=== PATIENT | male | born 1950 | race Caucasian/White ===

== ENCOUNTER 2016-12-13 10:59 | Emergency (ER) | payer OTHER, MEDICARE ==
[~2016-12-13] VITALS: Ht 182.9 cm; Wt 86.6 kg
[~2016-12-13 10:59] MED LIST: ASPIRIN EC325 MG PO; ATENOLOL50 MG PO; DIAZEPAM5 MG PO; FUROSEMIDE80 MG PO; IMIPRAMINE HCL10 MG PO; K-DUR20 MEQ PO; LEVAQUIN500 M1 PO; LEVAQUIN500 MG PO; LEVAQUIN750 MG PO; LISINOPRIL20 MG PO; PERPHENAZINE2 MG PO; [UNRECOGNIZED DRUG - OTHER] PO
[2016-12-13 11:11] VITALS: BP 126/79
--- NOTE | 2016-12-13 11:39 | ED INFLUENZA/URI COMPLAINT ---
History of Present Illness General Chief Complaint: Upper Respiratory Sx/Fever Stated Complaint: PT STATES "I HAVE ACUTE SINUSITIS" Source: patient Exam Limitations: no limitations Vital Signs & Intake/Output Vital Signs & Intake/Output Vital Signs Date Time Temp Pulse Resp B/P B/P Pulse O2 O2 Flow FiO2 Mean Ox Delivery Rate 12/13 1111 97.5 81 20 126/79 96 Room Air Allergies Coded Allergies: Macrolide Antibiotics (UNKNOWN 07/24/15) Penicillins (UNKNOWN 07/24/15) Sulfa (Sulfonamide Antibiotics) (UNKNOWN 07/24/15) acetaminophen (From PERCOCET) (UNKNOWN 07/24/15) oxycodone (From PERCOCET) (UNKNOWN 07/24/15) propoxyphene (UNKNOWN 07/24/15) Reconcile Medications Aspirin E.c. (Ecotrin) 325 MG TAB 1 TAB PO EOD HEART HEALTH (Reported) Atenolol 50 MG TABLET 2 TAB PO BID BP (Reported) Ciprofloxacin HCl/Dexameth (Ciprodex Otic Suspension) 0.3 %-0.1 % DROPS.SUSP 4 GTT OT BID OTITIS EXTERNA Diazepam 5 MG TABLET 1 TAB PO BID ANXIETY (Reported) Furosemide 80 MG TAB 1 TAB PO BID FLUID (Reported) IMIPRAMINE HCL (Imipramine HCl) 10 MG TAB 1 TAB PO AT BEDTIME MENTAL HEALTH ( Reported) Imipramine Hydrochloride 25 MG TAB 1 TAB PO 4 TIMES/DAY DEPRESSION (Reported) Levofloxacin (Levaquin) 500 MG TABLET 1 TAB PO DAILY sinusitis Levofloxacin (Levaquin) 750 MG TABLET 1 TAB PO DAILY SINUSITIS Lisinopril 20 MG TABLET 1 TAB PO BID BP (Reported) Perphenazine 2 MG TABLET 1 TAB PO TID ANXIETY FROM IMIPRAMINE (Reported) Potassium Chloride (K-Dur) [address] 1 TAB PO DAILY SUPPLEMENT (Reported) Triage Note: PT TO ED C/O "SINUSES AND EARS" X 1 WEEK. AFEBRILE. PT WAS TOLD YEARS AGO BY DR CLEARY TO COME TO ED AT THE FIRST SIGN OF A SINUS INFECTION DUE TO H/O CHF 20 YEARS AGO. PT STATES HE IS "ALLERGIC TO EVERYTHING" AND CAN ONLY TAKE LEVAQUIN. Triage Nurses Notes Reviewed? yes Onset: Gradual Duration: constant Timing: recent history Severity: severe Severity Numbers: 7 Prior Episodes/Possible Cause: chronic episodes HPI: Patient is a 66-year-old male with past medical history chronic sinusitis and CHF who presents emergency room with concerns of 5 day history gradual onset of nasal congestion sinus pressure and pain and right-sided ear pain. Patient states symptoms are very similar to previous episodes sinusitis. Denies any shortness of breath chest pain cough leg swelling chest pain and arm pain jaw pain sore throat difficulty swallowing headache neck pain neck stiffness (INDU HARPER) Past History Travel History Traveled to [place] past 21 day No Medical History Any Pertinent Medical History? 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 No (INDU HARPER) Review of Systems Review of Systems Constitutional: Reports: no symptoms. EENTM: Reports: see HPI, ear pain, nasal congestion. Respiratory: Reports: no symptoms. Cardiovascular: Reports: no symptoms. GI: Reports: no symptoms. Genitourinary: Reports: no symptoms. Musculoskeletal: Reports: no symptoms. Skin: Reports: no symptoms. Neurological/Psychological: Reports: no symptoms. Hematologic/Endocrine: Reports: no symptoms. Immunologic/Allergic: Reports: no symptoms. All Other Systems: Reviewed and Negative (INDU HARPER) Physical Exam Physical Exam General Appearance: no apparent distress, alert, comfortable Ears, Nose, Throat: moist mucous membrane, hearing grossly normal, pharynx normal, nasal congestion, nasal drainage, RIGHT EXTERNAL AUDITORY CANAL ERYTHEMA AND SWELLING TM BILATERAL NORMAL Comments: Well-developed well-nourished person in no acute distress HEENT: extraocular motion intact, no nystagmus. Pupils equally round and reactive to light and accommodation. Nose is atraumatic. . Pharynx normal. No swelling or edema. Left frontal sinus point tenderness, left maxillary sinus point tenderness Neck: Supple, no lymphadenopathy, normal range of motion without pain or tenderness Back: Nontender, no CVA tenderness. Cardiovascular: Regular rate and rhythms no murmurs rubs or gallops, normal JVP Respiratory: Chest nontender. No respiratory distress.breath sounds clear to auscultation bilaterally Abdomen: Soft, nontender nondistended, no appreciable organomegaly. Normal bowel sounds. No ascites Extremity: No edema, no calf tenderness to palpation, normal and equal pulses. Neuro: Alert oriented x3, motor sensory normal, Skin: No appreciable rash on exposed skin, skin is warm and dry. Psych: Mood and affect is normal, memory and judgment is normal. Core Measures Severe Sepsis Present: No Septic Shock Present: No (INDU HARPER) Progress Differential Diagnosis: influenza, meningitis, neutropenia, otitis, pneumonia, pharyngitis, sinusitis Plan of Care: Patient has no respiratory complaints clear lungs auscultation. Due to history of present illness and exam findings patient will be treated for concerns of sinusitis and right otitis externa. Initial ED EKG: none (INDU HARPER) Departure Departure Disposition: HOME OR SELF CARE Condition: Stable Clinical Impression Primary Impression: Sinusitis Secondary Impressions: Otitis externa of right ear Referrals: PATIENT HAS NO PRIMARY CARE DR (PCP/Family) Additional Instructions: As discussed begin the prescription of Levaquin as directed in the prescription of Ciprodex as directed for your symptoms. Prescriptions are waiting at [facility]. If symptoms worsen or if he develop any new concerning symptom return to the emergency room immediately. Follow-up with primary care doctor on Saturday if no better. Begin [id number] Sudafed for congestion and over-the- counter nasal SPRAY. Departure Forms: Customer Survey General Discharge Information Prescriptions: Current Visit Scripts Levofloxacin (Levaquin) 1 TAB PO DAILY #10 TAB Ciprofloxacin HCl/Dexameth (Ciprodex Otic Suspension) 4 GTT OT BID #1 BOT (INDU HARPER) PA/CUTTER OUT Co-Sign Statement Statement: ED Attending supervision documentation- [X] I saw and evaluated the patient. I have also reviewed all the pertinent lab results and diagnostic results. I agree with the findings and the plan of care as documented in the PA's/CUTTER OUT's documentation. [X] I have reviewed the ED Record and agree with the PA's/CUTTER OUT's documentation. [] Additions or exceptions (if any) to the PAs/CUTTER OUT's note and plan are summarized below: [] (ERIN MANCIA,IVELISSE Gunn)
[2016-12-13] MEDS ORDERED: LEVAQUIN750 M1 PO (11:41)
[2016-12-13] MEDS ORDERED: CIPRODEX OTIC7.5 ML OT (11:41)
== END 2016-12-13 11:50 ==
LOC: ERH 10:59
DX: J32.9 Chronic sinusitis, unspecified (principal); H60.91 Unspecified otitis externa, right ear; Z87.891 Personal history of nicotine dependence

== ENCOUNTER 2017-10-21 02:54 | Emergency (ER) | payer OTHER, MEDICARE ==
[~2017-10-21] VITALS: Ht 182.9 cm; Wt 86.2 kg
[~2017-10-21 02:54] MED LIST changes: +CIPRODEX OTIC7.5 ML OT; +LEVAQUIN750 M1 PO
[2017-10-21 03:00] VITALS: BP 161/80
--- NOTE | 2017-10-21 03:14 | ED INFLUENZA/URI COMPLAINT ---
History of Present Illness General Chief Complaint: General Adult Stated Complaint: PER PT SINUSITIS IS ACTING UP Source: patient Exam Limitations: no limitations Vital Signs & Intake/Output Vital Signs & Intake/Output Vital Signs Date Time Temp Pulse Resp B/P B/P Pulse O2 O2 Flow FiO2 Mean Ox Delivery Rate 10/21 0300 98.2 90 16 161/80 94 Room Air Room Air Allergies Coded Allergies: Macrolide Antibiotics (UNKNOWN 10/21/17) Penicillins (UNKNOWN 10/21/17) Sulfa (Sulfonamide Antibiotics) (UNKNOWN 10/21/17) acetaminophen (From PERCOCET) (UNKNOWN 10/21/17) oxycodone (From PERCOCET) (UNKNOWN 10/21/17) propoxyphene (UNKNOWN 10/21/17) Reconcile Medications Aspirin E.c. (Ecotrin) 325 MG TAB 1 TAB PO EOD HEART HEALTH (Reported) Atenolol 50 MG TABLET 2 TAB PO BID BP (Reported) Ciprofloxacin HCl/Dexameth (Ciprodex Otic Suspension) 0.3 %-0.1 % DROPS.SUSP 4 GTT OT BID OTITIS EXTERNA Diazepam 5 MG TABLET 1 TAB PO BID ANXIETY (Reported) Furosemide 80 MG TAB 1 TAB PO BID FLUID (Reported) IMIPRAMINE HCL (Imipramine HCl) 10 MG TAB 1 TAB PO AT BEDTIME MENTAL HEALTH ( Reported) Imipramine Hydrochloride 25 MG TAB 1 TAB PO 4 TIMES/DAY DEPRESSION (Reported) Levofloxacin (Levaquin) 500 MG TABLET 1 TAB PO DAILY sinusitis Levofloxacin (Levaquin) 500 MG TABLET 1 TAB PO DAILY sinusitis Levofloxacin (Levaquin) 500 MG TABLET 1 TAB PO DAILY sinusitis Levofloxacin (Levaquin) 750 MG TABLET 1 TAB PO DAILY SINUSITIS Lisinopril 20 MG TABLET 1 TAB PO BID BP (Reported) Perphenazine 2 MG TABLET 1 TAB PO TID ANXIETY FROM IMIPRAMINE (Reported) Potassium Chloride (K-Dur) [address] 1 TAB PO DAILY SUPPLEMENT (Reported) Triage Note: PT TO TRIAGE WITH SINUS PRESSURE, SCRATCHY THROAT AND LOW GRADE FEVERS FOR 3 DAYS Triage Nurses Notes Reviewed? yes Onset: Gradual Duration: day(s): Timing: recent history Severity: moderate Prior Episodes/Possible Cause: occassional episodes Modifying Factors: Improves With: rest, other ("only gets better w/levaquin"). Associated Symptoms: nasal congestion, nasal drainage, sinus infection, sore throat HPI: 67-year-old gentleman history of CHF and recurrent sinusitis, presents with sinus congestion, the sensation of nasal drainage down his throat and bilateral ear fullness. He states he feels pressure in his sinuses. "It really hurts and my sinuses. The only thing that helps is Levaquin for 10 days." Review of her chest pain shortness of breath diarrhea abdominal pain. He is otherwise well and has no other concerns. Past History Travel History Traveled to [place] past 21 day No Medical History Any Pertinent Medical History? 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 No Review of Systems Review of Systems Constitutional: Denies: see HPI. Physical Exam Physical Exam Ears, Nose, Throat: nasal congestion, nasal drainage, sinus tenderness to palpation Comments: Review of Systems - except as otherwise noted in HPI Review of Systems Constitutional:no symptoms. EENTM:no symptoms. Respiratory:no symptoms. Cardiovascular:no symptoms. GI:no symptoms. Genitourinary:no symptoms. Musculoskeletal:no symptoms. Skin:no symptoms. Neurological/Psychological:no symptoms. Hematologic/Endocrine:no symptoms. Immunologic/Allergic:no symptoms. All Other Systems: Reviewed and Negative Physical Exam Physical Exam General Appearance: well developed/nourished, no apparent distress Head: atraumatic, normal appearance Eyes: Bilateral: normal appearance. Ears, Nose, Throat: see above Neck: normal inspection, supple, full range of motion Respiratory: normal breath sounds, chest non-tender, no respiratory distress, quiet respiration, lungs clear Cardiovascular: regular rate/rhythm Gastrointestinal: normal bowel sounds, soft, non-tender, no organomegaly Back: normal inspection, normal range of motion Extremities: normal inspection, normal capillary refill, normal range of motion, no edema Neurologic/Psych: no motor/sensory deficits, awake, alert, oriented x 3 Skin: intact, normal color, warm/dry Core Measures Sepsis Present: No Sepsis Focused Exam Completed? No Progress Differential Diagnosis: pharyngitis, sinusitis Plan of Care: sent rx for levaquin... close follow up advised. Initial ED EKG: none Departure Departure Disposition: HOME OR SELF CARE Condition: Stable Clinical Impression Primary Impression: Sinusitis Referrals: Brent MANCIA,Brent (PCP/Family) Additional Instructions: follow up with your primary care doctor this week. Departure Forms: Customer Survey General Discharge Information Prescriptions: Current Visit Scripts Levofloxacin (Levaquin) 1 TAB PO DAILY #10 TAB Comments benign exam, wrote for levaquin... close follow up advised.
[2017-10-21] MEDS ORDERED: LEVAQUIN500 M1 PO (03:22)
--- NOTE | 2017-10-22 15:31 | OP PSYCH PROGRESS NOTE ---
Psych (Outpt) Progress Note Encounter Encounter Type Medication Management Date of Group or Service: 10/22/17 Time of Group or Service: 1530 Subjective Refilled pherphenazine 2mg tab, valium 5mg and imipramine 25mg as ordered, refer to [facility].
== END 2017-10-21 03:36 ==
LOC: ERH 02:54
DX: J32.9 Chronic sinusitis, unspecified (principal); Z87.891 Personal history of nicotine dependence